=== PATIENT | female | born 1990 | race Caucasian/White ===

== ENCOUNTER 2021-06-03 03:42 | Inpatient (IN) | payer OTHER ==
[~2021-06-03] VITALS: Ht 167.6 cm; Wt 105.7 kg
[~2021-06-03 03:42] MED LIST: CEPACOL SORE T1 EAC3 MM; IBUPROFEN600 MG PO; NORCO 5-325 TA1 EACH PO
[2021-06-03 05:45] LABS: HEMOGLOBIN 10.4 gm/dl (12.3-15.3); RED BLOOD COUNT 3.92 M/UL (4.00-5.10); WHITE BLOOD COUNT 8.3 K/UL (4.5-11.0)
[2021-06-03] MEDS ORDERED: COLACE100 MG PO (15:58)
[2021-06-03] MEDS ORDERED: HEMOCYTE324 MG PO (15:58)
[2021-06-03] MEDS ORDERED: IBUPROFEN800 MG PO (15:58)
[2021-06-04 07:37] LABS: HEMOGLOBIN 9.5 gm/dl (12.3-15.3)
== END 2021-06-04 17:24 | disposition home or self-care (01) | DRG 807 ==
LOC: GENOP 03:42 → OB 07:06 → GENOP 07:07 → OB 18:15
PROVIDERS: Obstetrics & Gynecology; ADMIT Obstetrics & Gynecology
PROC: 10E0XZZ Delivery of Products of Conception, External Approach (ICD-10-PCS; principal; 2021-06-03)
PROC: 4A1HXCZ Monitoring of Products of Conception, Cardiac Rate, External Approach (ICD-10-PCS; 2021-06-03)
PROC: 0HQ9XZZ Repair Perineum Skin, External Approach (ICD-10-PCS; 2021-06-03)
DX: O42.913 Preterm premature rupture of membranes, unspecified as to length of time between rupture and onset of labor, third trimester (principal); Z37.0 Single live birth; Z3A.35 35 weeks gestation of pregnancy; Z20.822 Contact with and (suspected) exposure to COVID-19; O70.0 First degree perineal laceration during delivery
CPT/HCPCS: 36415; 51702; 81001; 83518; 85014; 85018; 85025; 85461; 86850; 86900; 86901; J0702; J2405; J2590; J2790; J3430; J7120; U0002